=== PATIENT | female | born 1975 | race African-American/Black ===

== ENCOUNTER 2020-01-31 10:45 | Inpatient (IN) | payer MEDICAID ==
[~2020-01-31] VITALS: Ht 175.3 cm; Wt 92.5 kg
[2020-01-31 10:45] VITALS: BP 124/78
[2020-01-31] MEDS ORDERED: dexAMETHasone 10mg/ml Inj IV ONE (11:30)
[2020-01-31] MEDS ORDERED: cefTRIAXone 2 GM in NS 110 ML IV ONE (11:30)
--- NOTE | 2020-01-31 11:38 | Emergency Room Report ---
History of Present Illness General Chief Complaint: Dyspnea/Respdistress Source: Patient Present Illness HPI 44F SLE, CKD, pulmonary HTN and interstitial fibrosis, cardiomyopathy sent from Dr. Rodriguez's office for hypoxia. Patient was hypoxic on RA 70% prior to arrival. She states that she has become more swollen and edmatous in the past several weeks despite Lasix. Denies chest pain, nausea, vomiting, cough, hemoptysis, fevers or other symptoms. The patient's symptoms were gradual onset, severity was moderate, duration since several days. Quality: Edematous, short of breath Past medical history: SLE, CKD, pulmonary hypertension, interstitial fibrosis, cardiomyopathy Past surgical history: Denies Smoking: Denies Alcohol use: Denies Drug use: Denies Review of systems: CONST: No fevers or chills, No night sweats PULMONARY: No productive cough, ++ shortness of breath CARDIAC: No chest pain, No palpitations GI: No vomiting, No diarrhea , No melena_or_BRBPR : No dysuria, No hematuria, No discharge NEURO: No new_focal_weakness_or_numbness, No confusion, No vision changes 14 point Review of Systems is otherwise negative except per HPI Physical Exam: GENERAL: Awake_alert_ nontoxic, no acute distress Spo2 70% on RA -abnormal EYES: Extraocular muscles are intact. Conjunctivae clear. Lids without swelling ENT: External nose and ear normal_in_appearance. Oropharynx clear. Head_atraumatic, Moist_oral_mucosa NECK: ++ JVD. No meningismus. No thyromegaly. Supple. Trachea midline RESP: Coarse breath sounds bilaterally. Rhonchi. No subcostal retractions CARDIAC: Regular rate and regular rhytm. 3+ pitting edema bilaterally ABDOMEN: Soft. Nondistended. Nontender_No_rebound_or_guarding. MSK: Normal muscle tone, without rigidity. Extremities without asymmetric deformity or swelling. SKIN: Warm and dry. No visible cyanosis or pallor NEUROLOGIC: Alert, oriented x3. Motor_and_sensation_grossly_intact. No truncal ataxia. Gait_normal Psych: Normal mood and affect, normal judgment and insight - COORDINATION OF CARE Case was discussed with: Patient , Patient's Physician Any labs and imaging that were ordered were interpreted as part of the medical decision making: Medical Decision Making/Plan: Differential includes CHF, pulmonary edema, pulmonary embolism, pneumonia, pleural effusions, pneumothorax, among others. EKG shows normal sinus rhythm with Q waves in the inferior leads. It is without any obvious signs of ischemia. CXR shows large cardiomegaly with interstitial edema and pulmonary fibrosis. Questionable left pleural effusion versus atelectasis. Troponin was elevated at 0.1, BNP is elevated at 11,000 201. Began aggressive diuresis here in the emergency department with Lasix, however was limited secondary to patient's ANEL. Creatinine is 1.9. CTA ordered but patient unable to receive 2/2 CKD. Symptoms are not likely to be due to pulmonary embolism, the patient has no significant PE risk factors and has a more likely alternate cause of their symptoms, given their chest xray findings, lung exam and presentation so workup was deferred and not pursued. The patient appears to be in decompensated CHF in exacerbation and not a suitable candidate for outpatient treatment so will be admitted for inpatient diuresis and further evaluation and treatment. - CRITICAL CARE TIME - I spent 45 minutes of critical care time. This time excludes any separately billable procedures. Treatments/Evaluations: Emergent and rapid respiratory assessment and management with continuous monitoring. Advanced airway equipment at the ready, while the patient's respiratory symptoms were stabilized. Given the patients presentation with CHF requiring oxygen, there existed the potential for imminent deterioration in the patient's condition due to respiratory compromise. 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: No Patient History Now: No Nursing Documentation-[facility] Past Medical History: No History, Except For Hx Cardiac Problems: No - lupus Physical Exam Vital Signs Date Time Temp Pulse Resp B/P (MAP) Pulse Ox O2 Delivery O2 Flow Rate FiO2 01/31/20 10:54 98.2 95 22 110/76 (87) 70 Room Air Sp02 EP Interpretation: reviewed, abnormal Medical Decision Making Diagnostic Impression: Primary Impression: Hypoxia Additional Impressions: CHF exacerbation NSTEMI (non-ST elevated myocardial infarction) CKD (chronic kidney disease) Interstitial pulmonary fibrosis SLE (systemic lupus erythematosus related syndrome) Hypokalemia EKG Diagnostic Results OCTAVIA Scribbhavani Text 12-lead EKG (interpreted by me) Time: 1132 Indication: Rhythm analysis Tracing visualized and Interpreted by me. Rhythm: Normal sinus rhythm Rate: 90 bpm QTc: 496 Morphology: No_significant_ST_elevations_or_depressions, No STEMI Impression: Normal_sinus_rhythm_without_significant_abnormality Q waves anterior leads. Normal axis. Normal intervals. Rhythm Strip Diag. Results Rhythm Strip Time: 13:38 EP Interpretation: yes Rate: 89 Rhythm: NSR, no PVC's, no ectopy Chest X-Ray Diagnostic Results Chest X-Ray Diagnostic Results : OCTAVIA Scribe Text Chest X-Ray: Views: [ 1 ] view(s) Indication: Shortness of breath cardiomegaly. Left-sided atelectasis versus pleural effusion. Findings: Interstitial fibrosis, interstitial edema, left-sided atelectasis versus effusion, cardiomegaly Impression: CHF The X-ray(s) were independently viewed and interpreted contemporaneously Electronically signed by Isabella ybarra DO Reevaluation Time: 13:39 Last Vital Signs Date Time Temp Pulse Resp B/P (MAP) Pulse Ox O2 Delivery O2 Flow Rate FiO2 01/31/20 10:54 98.2 95 22 110/76 (87) 70 Room Air Status: improved Disposition: ADMITTED INPATIENT Admit Decision Time: 13:00 Condition: Stable Isabella Haynes D.O. Jan 31, 2020 11:38
[2020-01-31 11:48] LABS: BASOPHILS % (AUTO) 0.9 % (0.0-2.0); EOSINOPHILS % (AUTO) 1.2 % (0.0-3.0); HEMATOCRIT 43.8 % (37.0-47.0); HEMOGLOBIN 12.9 G/DL (12.0-16.0); LYMPHOCYTES % (AUTO) 13.5 % (20.0-45.0); MEAN CORPUSCULAR VOLUME 107 FL (80-99); MONOCYTES % (AUTO) 4.3 % (1.0-10.0); NEUTROPHILS % (AUTO) 80.1 % (45.0-75.0); PLATELET COUNT 268 K/UL (150-450); RED BLOOD COUNT 4.08 M/UL (4.20-5.40); RED CELL DISTRIBUTION WIDTH 17.5 % (11.6-14.8); WHITE BLOOD COUNT 12.5 K/UL (4.8-10.8)
[2020-01-31 11:52] LABS: APPEARANCE,URINE CLEAR; BILIRUBIN, URINE NEGATIVE (NEGATIVE); GLUCOSE, URINE (UA) NEGATIVE (NEGATIVE); KETONES,URINE NEGATIVE (NEGATIVE); LEUKOCYTE ESTERASE ,URINE NEGATIVE (NEGATIVE); NITRITE,URINE NEGATIVE (NEGATIVE); PH,URINE 6.5 (4.5-8.0); PROTEIN,URINE 1+ (NEGATIVE); UROBILINOGEN,URINE 1 MG/DL (0.0-1.0)
[2020-01-31 11:54] LABS: COLOR,URINE YELLOW
[2020-01-31 11:56] LABS: INR 1.4 (0.9-1.1)
[2020-01-31 12:11] LABS: ALBUMIN 2.8 G/DL (3.4-5.0); ALBUMIN/GLOBULIN RATIO 0.4 (1.0-2.7); BILIRUBIN,TOTAL 1.5 MG/DL (0.2-1.0); CALCIUM 8.7 MG/DL (8.5-10.1); CREATININE 1.9 MG/DL (0.55-1.30); PHOSPHORUS 3.9 MG/DL (2.5-4.9); POTASSIUM 2.8 MMOL/L (3.5-5.1)
[2020-01-31 12:13] LABS: BILIRUBIN,DIRECT 0.7 MG/DL (0.0-0.3)
[2020-01-31] MEDS ORDERED: Omnipaque 350 100ml vial INJ PRN (12:15)
[2020-01-31] MEDS: Nitroglycerin Patch 0.1mg/hr TDERMAL SCH (12:27)
--- NOTE | 2020-01-31 15:13 | Diagnostic Imaging Report ---
Indication: Shortness of breath Technique: One view of the chest Comparison: none Findings: The heart is enlarged. There are bilateral interstitial airspace infiltrates versus edema diffusely. There may be a small left pleural effusion. Impression: Cardiomegaly Bilateral diffuse extensive interstitial and airspace infiltrates versus edema
[2020-01-31 16:00] VITALS: BP 117/77
[2020-01-31 20:00] VITALS: BP 105/74
[2020-01-31] MEDS: Heparin 5000 units/ml inj SUBQ SCH (21:08)
[2020-01-31] MEDS: Carvedilol 6.25mg Tab ORAL SCH (21:09)
[2020-02-01] VITALS: BP 105/62
[2020-02-01 04:00] VITALS: BP 110/70
[2020-02-01 06:09] LABS: HEMATOCRIT 41.3 % (37.0-47.0); HEMOGLOBIN 12.5 G/DL (12.0-16.0); MEAN CORPUSCULAR VOLUME 105 FL (80-99); PLATELET COUNT 305 K/UL (150-450); RED BLOOD COUNT 3.94 M/UL (4.20-5.40); RED CELL DISTRIBUTION WIDTH 18.1 % (11.6-14.8); WHITE BLOOD COUNT 14.1 K/UL (4.8-10.8)
[2020-02-01 06:22] LABS: CALCIUM 8.3 MG/DL (8.5-10.1); CREATININE 1.9 MG/DL (0.55-1.30); POTASSIUM 3.1 MMOL/L (3.5-5.1)
[2020-02-01 08:00] VITALS: BP 95/65
[2020-02-01] MEDS ORDERED: dexAMETHasone 10mg/ml Inj IV SCH (09:00)
[2020-02-01] MEDS: Heparin 5000 units/ml inj SUBQ SCH ×2 (10:50→20:42)
[2020-02-01] MEDS: Vitamin D 1000 IU Tab ORAL SCH (10:50)
[2020-02-01] MEDS: azaTHIOprine 50 MG TAB ORAL SCH (10:51)
[2020-02-01] MEDS: Carvedilol 6.25mg Tab ORAL SCH ×2 (10:54→20:36)
[2020-02-01] MEDS: metOLazone 2.5 MG TAB ORAL SCH (10:57)
[2020-02-01 12:00] VITALS: BP 108/73
--- NOTE | 2020-02-01 12:58 | Cardiology Report ---
APPROVED REPORT EKG Measurement Heart [id number] <Conclusion> Normal sinus rhythm Left posterior fascicular block Septal infarct, age undetermined Abnormal ECG
--- NOTE | 2020-02-01 13:43 | History & Physical ---
History and Physical History & Physicial 44 year old SLE, CKD, pulmonary HTN and interstitial fibrosis, cardiomyopathy Patient was hypoxic on RA 70% prior to arrival and is awaiting oxygen at home Patient with significant edema and possibly ascites. The patient's symptoms were gradual onset, severity was moderate, duration since several days. Quality: Edematous, short of breath Past medical history: SLE, CKD, pulmonary hypertension, interstitial fibrosis, cardiomyopathy Past surgical history: none Smoking: Denies Alcohol use: Denies Drug use: Denies Physical WDWN NAD reduced breath sounds bilaterally without rhonchi or wheeze Labs Test 01/31/20 11:30 01/31/20 11:32 01/31/20 11:50 01/31/20 13:31 White Blood Count 12.5 K/UL (4.8-10.8) Red Blood Count 4.08 M/UL (4.20-5.40) Hemoglobin 12.9 G/DL (12.0-16.0) Hematocrit 43.8 % (37.0-47.0) Mean Corpuscular Volume 107 FL (80-99) Mean Corpuscular Hemoglobin 31.7 PG (27.0-31.0) Mean Corpuscular Hemoglobin Concent 29.6 G/DL (32.0-36.0) Red Cell Distribution Width 17.5 % (11.6-14.8) Platelet Count 268 K/UL (150-450) Mean Platelet Volume 6.8 FL (6.5-10.1) Neutrophils (%) (Auto) 80.1 % (45.0-75.0) Lymphocytes (%) (Auto) 13.5 % (20.0-45.0) Monocytes (%) (Auto) 4.3 % (1.0-10.0) Eosinophils (%) (Auto) 1.2 % (0.0-3.0) Basophils (%) (Auto) 0.9 % (0.0-2.0) Prothrombin Time 14.9 SEC (9.30-11.50) Prothromb Time International Ratio 1.4 (0.9-1.1) Activated Partial Thromboplast Time 29 SEC (23-33) Sodium Level 138 MMOL/L (136-145) Potassium Level 2.8 MMOL/L (3.5-5.1) Chloride Level 94 MMOL/L (98-107) Carbon Dioxide Level 42 MMOL/L (21-32) Anion Gap 1 mmol/L (5-15) Blood Urea Nitrogen 31 mg/dL (7-18) Creatinine 1.9 MG/DL (0.55-1.30) Estimat Glomerular Filtration Rate 29.0 mL/min (>60) Glucose Level 83 MG/DL (74-106) Calcium Level 8.7 MG/DL (8.5-10.1) Phosphorus Level 3.9 MG/DL (2.5-4.9) Magnesium Level 1.5 MG/DL (1.8-2.4) Total Bilirubin 1.5 MG/DL (0.2-1.0) Direct Bilirubin 0.7 MG/DL (0.0-0.3) Aspartate Amino Transf (AST/SGOT) 36 U/L (15-37) Alanine Aminotransferase (ALT/SGPT) 8 U/L (12-78) Alkaline Phosphatase 84 U/L (46-116) Total Creatine Kinase 214 U/L (26-308) Creatine Kinase MB 2.0 NG/ML (0.0-3.6) Creatine Kinase MB Relative Index 0.9 Troponin I 0.128 ng/mL (0.000-0.056) Pro-B-Type Natriuretic Peptide 37609 pg/mL (0-125) Total Protein 9.2 G/DL (6.4-8.2) Albumin 2.8 G/DL (3.4-5.0) Globulin 6.4 g/dL Albumin/Globulin Ratio 0.4 (1.0-2.7) Lipase 247 U/L (73-393) Urine Color Yellow Urine Appearance Clear Urine pH 6.5 (4.5-8.0) Urine Specific [place] 1.005 (1.005-1.035) Urine Protein 1+ (NEGATIVE) Urine Glucose (UA) Negative (NEGATIVE) Urine Ketones Negative (NEGATIVE) Urine Blood Negative (NEGATIVE) Urine Nitrite Negative (NEGATIVE) Urine Bilirubin Negative (NEGATIVE) Urine Urobilinogen 1 MG/DL (0.0-1.0) Urine Leukocyte Esterase Negative (NEGATIVE) Urine RBC 0 /HPF (0 - 2) Urine WBC 0-2 /HPF (0 - 2) Urine Squamous Epithelial Cells Few /LPF (NONE/OCC) Urine Bacteria Occasional /HPF (NONE) Lactic Acid Level 1.20 mmol/L (0.4-2.0) Arterial Blood pH 7.450 (7.350-7.450) Arterial Blood Partial Pressure CO2 65.7 mmHg (35.0-45.0) Arterial Blood Partial Pressure O2 196.7 mmHg (75.0-100.0) Arterial Blood HCO3 44.6 mmol/L (22.0-26.0) Arterial Blood Oxygen Saturation 99.4 % (95-100) Arterial Blood Base Excess 17.4 (-2-2) Uri Test Positive Test 01/31/20 17:07 02/01/20 05:40 Arterial Blood pH 7.466 (7.350-7.450) Arterial Blood Partial Pressure CO2 61.6 mmHg (35.0-45.0) Arterial Blood Partial Pressure O2 60.7 mmHg (75.0-100.0) Arterial Blood HCO3 43.4 mmol/L (22.0-26.0) Arterial Blood Oxygen Saturation 90.1 % (95-100) Arterial Blood Base Excess 16.7 (-2-2) Uri Test Positive White Blood Count 14.1 K/UL (4.8-10.8) Red Blood Count 3.94 M/UL (4.20-5.40) Hemoglobin 12.5 G/DL (12.0-16.0) Hematocrit 41.3 % (37.0-47.0) Mean Corpuscular Volume 105 FL (80-99) Mean Corpuscular Hemoglobin 31.7 PG (27.0-31.0) Mean Corpuscular Hemoglobin Concent 30.2 G/DL (32.0-36.0) Red Cell Distribution Width 18.1 % (11.6-14.8) Platelet Count 305 K/UL (150-450) Mean Platelet Volume 6.9 FL (6.5-10.1) Neutrophils (%) (Auto) % (45.0-75.0) Lymphocytes (%) (Auto) % (20.0-45.0) Monocytes (%) (Auto) % (1.0-10.0) Eosinophils (%) (Auto) % (0.0-3.0) Basophils (%) (Auto) % (0.0-2.0) Sodium Level 137 MMOL/L (136-145) Potassium Level 3.1 MMOL/L (3.5-5.1) Chloride Level 94 MMOL/L (98-107) Carbon Dioxide Level 44 MMOL/L (21-32) Anion Gap 0 mmol/L (5-15) Blood Urea Nitrogen 37 mg/dL (7-18) Creatinine 1.9 MG/DL (0.55-1.30) Estimat Glomerular Filtration Rate 35.1 mL/min (>60) Glucose Level 147 MG/DL (74-106) Calcium Level 8.3 MG/DL (8.5-10.1) [id number] without MRG NABS nontender no CC noted edema nonfocal IMPRESSION pulmonary edema pulmonary hypertension chronic CO2 retention hypoxemia pulmonary fibrosis PLAN lasix resume meds oxygen impression, plan, and exam edited and reviewed in detail care discussed with Nixon Vale MD Feb 01, 2020 13:43
[2020-02-01] MEDS: Nitroglycerin Patch 0.1mg/hr TDERMAL SCH (14:02)
[2020-02-01 16:00] VITALS: BP 100/69
--- NOTE | 2020-02-01 17:15 | Diagnostic Imaging Report ---
Indication: Shortness of breath Technique: One view of the chest Comparison: 01/31/2020 Findings: The heart is enlarged. Bilateral interstitial and airspace disease is unchanged. There may be small bilateral pleural effusions. Some pleural calcifications are seen in the right lung base Impression: Unchanged, over one day, findings as above.
--- NOTE | 2020-02-01 17:40 | Diagnostic Imaging Report ---
Indication: Abdominal pain, abnormal renal function tests Technique: Solis-scale and duplex images of the upper abdomen were obtained Comparison: none Findings: There is a small amount of ascites fluid present. Gallbladder nondistended. The wall appears somewhat thickened. No gallstones. Sonographic Paul's sign is negative. Common bile duct measures 5 mm in diameter. No intrahepatic biliary ductal dilatation. Liver demonstrates very slightly coarse in echogenicity. It demonstrates slight surface nodularity and is mildly enlarged. Portal vein and hepatic veins are patent. Pancreas is unremarkable. Spleen is unremarkable. Left kidney measures 10.3 cm in length. Right kidney measures 11.2 cm length. Both kidneys demonstrate normal echogenicity. There is no hydronephrosis. No focal abnormality . Non-aneurysmal abdominal aorta . Impression: Mildly enlarged liver, with surface nodularity suggestive of early chronic change Ascites No gallstones. However, the gallbladder wall is thickened. This is probably related to the hepatic abnormality; the possibility of acute acalculous cholecystitis should also be considered it is less likely Negative for biliary ductal dilatation
[2020-02-01 20:00] VITALS: BP 108/61
[2020-02-02] VITALS: BP 131/65
[2020-02-02 04:00] VITALS: BP 143/63
[2020-02-02 08:00] VITALS: BP 97/53
[2020-02-02] MEDS: azaTHIOprine 50 MG TAB ORAL SCH (08:28)
[2020-02-02] MEDS: Vitamin D 1000 IU Tab ORAL SCH (08:29)
[2020-02-02] MEDS: Heparin 5000 units/ml inj SUBQ SCH (08:30)
--- NOTE | 2020-02-02 08:42 | General Progress Note ---
Subjective Allergies: Coded Allergies: No Known Allergies (Unverified , 01/31/20) Subjective comfortable no abdominal pain or tenderness on o2 but not set up at home Objective Last 24 Hour Vital Signs Date Time Temp Pulse Resp B/P (MAP) Pulse Ox O2 Delivery O2 Flow Rate FiO2 02/02/20 04:00 98.2 80 20 143/63 (89) 97 02/02/20 03:35 88 02/02/20 00:00 97.7 90 18 131/65 (87) 98 02/01/20 23:32 84 02/01/20 21:00 Nasal Cannula 2.0 02/01/20 20:36 94 108/61 02/01/20 20:00 91 02/01/20 20:00 98.5 94 18 108/61 (77) 96 02/01/20 16:00 98.1 89 16 100/69 (79) 96 02/01/20 16:00 90 02/01/20 14:02 107/71 02/01/20 12:00 96.9 83 16 98 02/01/20 12:00 96.9 83 16 108/73 (85) 98 02/01/20 12:00 93 02/01/20 10:54 83 110/70 02/01/20 09:00 Nasal Cannula 2.0 Intake and Output 02/01/20 02/02/20 19:00 07:00 Intake Total 970 ml 290 ml Balance 970 ml 290 ml Intake Oral 970 ml 290 ml # Voids 5 2 # Bowel Movements 1 Height (Feet): 5 Height (Inches): 9.00 Weight (Pounds): 204 Objective WDWN NAD reduced breath sounds bilaterally without rhonchi or wheeze [id number] +P2 NABS nontender +HM no CC noted edema nonfocal Assessment/Plan Assessment/Plan: IMPRESSION pulmonary edema pulmonary hypertension chronic CO2 retention hypoxemia pulmonary fibrosis chronic respiratory failure hepatomegaly ascites PLAN lasix resume meds oxygen at home and dc has home meds to continue awaiting lung transplant at [facility] impression, plan, and exam edited and reviewed in detail care discussed with Nixon Vale MD Feb 02, 2020 08:42
[2020-02-02] MEDS: Carvedilol 6.25mg Tab ORAL SCH (09:00)
[2020-02-02] MEDS: metOLazone 2.5 MG TAB ORAL SCH (09:00)
[2020-02-02 10:20] VITALS: BP 107/67
[2020-02-02 12:00] VITALS: BP 106/71
[2020-02-02 12:28] VITALS: BP 106/71
[2020-02-02] MEDS: Nitroglycerin Patch 0.1mg/hr TDERMAL SCH (12:28)
--- NOTE | 2020-02-06 12:38 | Discharge Summary ---
Discharge Summary Discharge Summary _ DATE OF ADMISSION: 01/31/2020 DATE OF DISCHARGE: 02/02/2020 DISCHARGED BY: Dr. Rodriguez REASON FOR ADMISSION: 44 years old female has history of lupus, chronic kidney disease, pulmonary hypertension, interstitial fibrosis, chronic respiratory failure with hypoxemia, home oxygen dependent , cardiomyopathy, was sent from the office due to hypoxia. Patient was on room air saturating 70% prior to arrival. In the past several weeks patient reported becoming more edematous despite Lasix. She denied chest pain, no cough or hemoptysis. No fever or chills. No nausea vomiting or diarrhea. Upon evaluation vital signs reveal hypoxia 70% on room air. Patient required supplemental oxygen. Laboratory work-up revealed leukocytosis WBC 12.5, stable hemoglobin, hematocrit and platelet count. ABG on 3 L of oxygen via nasal cannula revealed CO2 retention with PCO2 of 66. CO2 42, potassium 2.8, magnesium 1.5 BUN 31, creatinine 1.9. Lactic acid 1.2. ProBNP 31443. EKG revealed sinus rhythm no acute ischemic changes. Total bili 1.5 ,direct bili 0.7. Stable AST and ALT. Urinalysis revealed +1 protein, no evidence of urinary tract infection. Chest x-ray revealed cardiomegaly with bilateral diffuse extensive interstitial and airspace infiltrates versus edema. Rapid COVID-19 was negative. In emergency department patient received Lasix , steroid, empiric antibiotic , started on replacement of potassium and magnesium and admitted for further management. HOSPITAL COURSE: Patient admitted to telemetry floor. Patient started on diuresis with IV Lasix with close monitoring of volumes , electrolytes and renal parameters. Supplemental oxygen provided and titrated to keep pulse oximetry above 92% , pulmonary toilet was on board as needed. Follow-up chest x-ray revealed no significant improvement. Patient on supplemental oxygen at home and currently waiting for the lung transplant at [facility]. Pulse oximetry remained stable on oxygen 2 L via nasal cannula. Abdominal ultrasound revealed ascites , mildly enlarged liver surface nodularity, suggestive of early chronic changes. No gallstones. No biliary ductal dilatation. Potassium and magnesium were replaced. Blood cultures were negative. Urine culture revealed mixed urogenital contaminants. Patient clinically stabilized and was ready for discharge with home oxygen. FINAL DIAGNOSES: Pulmonary edema Pulmonary hypertension Chronic CO2 retention Hypoxemia Chronic respiratory failure Pulmonary fibrosis Subcutaneous lupus erythematosus Hepatomegaly Ascites DISCHARGE MEDICATIONS: See Medication Reconciliation list. DISCHARGE INSTRUCTIONS: Patient was discharged home. Follow-up with a primary care provider in 1 week. I have been assigned to dictate discharge summary for this account. I was not involved in the patient's management. Melissa Montiel NP Feb 06, 2020 12:38
== END 2020-02-02 15:00 | disposition home or self-care (01) | DRG 142 ==
LOC: EMR 12:14 → 2E 12:31 → EDBEDREQ 13:20 → 2E 14:21
DX: J84.10 Pulmonary fibrosis, unspecified (principal); J96.11 Chronic respiratory failure with hypoxia; M32.9 Systemic lupus erythematosus, unspecified; I50.9 Heart failure, unspecified; N18.9 Chronic kidney disease, unspecified; I42.9 Cardiomyopathy, unspecified; I27.20 Pulmonary hypertension, unspecified; E87.2 Acidosis; R16.0 Hepatomegaly, not elsewhere classified; R18.8 Other ascites
CPT/HCPCS: 36415; 71045; 76700; 80048; 80053; 81003; 82248; 82550; 82553; 82803; 83605; 83690; 83735; 83880; 84100; 84484; 85025; 85610; 85730; 87040; 87086; 93005; 96365; 96375; 99291; J8499